=== PATIENT | male | born 1995 | race Two or more races ===

== ENCOUNTER 2017-09-12 11:15 | Emergency (ER) | payer SELFPAY ==
[~2017-09-12] VITALS: Ht 165.1 cm; Wt 59.4 kg
[2017-09-12 11:20] VITALS: BP 139/85
[2017-09-12] MEDS ORDERED: KETOROLAC 60 MG/2 ML VIAL IM ONE (11:55)
[2017-09-12 14:01] VITALS: BP 121/65
== END 2017-09-12 14:01 | disposition home or self-care (01) ==
LOC: MED 11:15
DX: S49.91XA Unspecified injury of right shoulder and upper arm, initial encounter (principal); W18.39XA Other fall on same level, initial encounter; Y93.66 Activity, soccer; Y92.89 Other specified places as the place of occurrence of the external cause; Y99.8 Other external cause status
CPT/HCPCS: 73030; 96372; 99284; J1885

== ENCOUNTER 2020-01-17 21:08 | Emergency (ER) | payer BC ==
[~2020-01-17] VITALS: Ht 167.6 cm; Wt 61.7 kg
[2020-01-17 21:25] VITALS: BP 130/90
--- NOTE | 2020-01-17 21:25 | NUR ---
TO TENT 01 AMBULATORY
--- NOTE | 2020-01-17 22:00 | NUR ---
SEEN AND EXAMINED BY CLEMENTE
[2020-01-17 22:30] VITALS: BP 118/88
--- NOTE | 2020-01-17 22:30 | NUR ---
Patient discharged with v/s stable. Written and verbal after care instructions given and explained. Patient alert, oriented and verbalized understanding of instructions. Ambulatory with steady gait. All questions addressed prior to discharge. ID band removed. Patient advised to follow up with PMD. Rx of PEPCID 40MG given. Patient educated on indication of medication including possible reaction and side effects. Opportunity to ask questions provided and answered.
== END 2020-01-17 22:30 | disposition home or self-care (01) ==
LOC: MED 21:08
DX: K29.70 Gastritis, unspecified, without bleeding (principal)
CPT/HCPCS: 99282

== ENCOUNTER 2021-02-25 23:54 | Emergency (ER) | payer BC ==
[~2021-02-25] VITALS: Ht 167.6 cm; Wt 67.1 kg
--- NOTE | 2021-02-26 01:13 | NUR ---
TO LOBBY A/W BED AMBULATORY
[2021-02-26] MEDS ORDERED: IBUPROFEN 600 MG TAB PO ONE (01:20)
[2021-02-26] MEDS ORDERED: ACETAMINOPHEN EXTRA STRENGTH 500 MG TAB PO ONE (01:20)
[2021-02-26] MEDS ORDERED: ALBU0.0912 INH (02:53)
--- NOTE | 2021-02-26 02:55 | NUR ---
SEEN AND EXAMINED BY CLEMENTE
--- NOTE | 2021-02-26 04:10 | NUR ---
SWABS FOR INFLUENZA, NOVEL SENT TO LAB
[2021-02-26 04:13] VITALS: BP 118/78
--- NOTE | 2021-02-26 04:13 | NUR ---
Patient discharged with v/s stable. Written and verbal after care instructions given and explained. Patient alert, oriented and verbalized understanding of instructions. Ambulatory with steady gait. All questions addressed prior to discharge. ID band removed. Patient advised to follow up with PMD. Rx of PROVENTIL given. Patient educated on indication of medication including possible reaction and side effects. Opportunity to ask questions provided and answered.
== END 2021-02-26 04:13 | disposition home or self-care (01) ==
LOC: MED 23:54
DX: B34.9 Viral infection, unspecified (principal); Z20.822 Contact with and (suspected) exposure to COVID-19; Z79.899 Other long term (current) drug therapy
CPT/HCPCS: 87804; 99283; U0003

== ENCOUNTER 2023-05-16 09:00 | Emergency (ER) | payer BC ==
[~2023-05-16] VITALS: Ht 167.6 cm; Wt 64.9 kg
[~2023-05-16 09:00] MED LIST: ALBU0.0912 INH
[2023-05-16 09:10] VITALS: BP 156/91; PULSE 71; RESP 18; TEMP 98.1; O2SAT 98
[2023-05-16] MEDS ORDERED: IBUP-2213 PO (10:50)
[2023-05-16] MEDS: ACETAMINOPHEN 325 MG TAB PO ONE (11:00)
[2023-05-16] MEDS: KETOROLAC 30 MG/ML VIAL IM ONE (11:01)
== END 2023-05-16 11:20 | disposition home or self-care (01) ==
LOC: MED 09:00
DX: S62.316A Displaced fracture of base of fifth metacarpal bone, right hand, initial encounter for closed fracture (principal); W22.01XA Walked into wall, initial encounter; Y93.89 Activity, other specified; Y92.89 Other specified places as the place of occurrence of the external cause; Y99.8 Other external cause status
CPT/HCPCS: 29125; 73110; 73130; 96372; 99284; J1885